=== PATIENT | female | born 1930 | race Caucasian/White ===

== ENCOUNTER 2017-07-28 21:57 | Inpatient (IN) | payer OTHER, BC ==
[~2017-07-28] VITALS: Ht 170.2 cm; Wt 96.9 kg
[~2017-07-28 21:57] MED LIST: AMCINONIDE TP; BACTRIM,SEPT1 TABLET PO; CALCIUM 600 +1 EA15 PO; CENTRUM SILVER1 EAC3 PO; COUMADIN2.5 MG PO; COUMADIN5 MG PO; HYDROCHLOROTHIA25 MG PO; LIDODERM 5% P1 PATCH TD; LIPITOR10 MG PO; LOPRESSOR50 MG PO; PERCOCET 5/31 TABLET PO; PREVACID30 MG PO; ZESTRIL10 MG PO
[2017-07-29 00:28] LABS: BASOPHIL (%) 0.1 % (0-1); EOSINOPHIL (%) 2.8 % (0-5); EOSINOPHIL COUNT 0.3 K/uL (0-0.3); HEMATOCRIT 38.9 % (36.0-46.0); HEMOGLOBIN 13.2 G/DL (11.9-15.5); IMMATURE GRANULOCYTE (%) 0.7 % (0.0-0.7); LYMPHOCYTE (%) 11.2 % (15-42); LYMPHOCYTE COUNT 1.2 K/uL (1.0-2.8); MCH 32.2 PG (29.0-34.0); MCHC 33.9 G/DL (30.0-36.0); MCV 94.9 FL (83-99); MONOCYTE COUNT 0.9 K/uL (0-0.8); NEUTROPHIL (%) 77.2 % (45-76); NEUTROPHIL COUNT 8.3 K/uL (1.8-6.4); NRBC (%) 0.2 /100 WBC (0-0); PLATELET COUNT 222 K/uL (156-360); RBC DIS.WIDTH-CV 13.9 % (11.8-14.6); RBC DIS.WIDTH-SD 48.2 % (39-53); WHITE BLOOD COUNT 10.8 K/uL (4.1-10.2)
[2017-07-29 00:36] LABS: PTT 38.5 SEC (25-37)
[2017-07-29 00:38] LABS: CHLORIDE 102 mEq/L (99-109); POTASSIUM 5.1 mEq/L (3.7-5.4); SODIUM 137 mEq/L (136-147)
[2017-07-29 00:40] LABS: GLUCOSE 104 mg/dL (70-99)
[2017-07-29 00:44] LABS: CREATININE 1.1 mg/dL (0.6-1.3); GFR ESTIMATE (CALCULATED) 50 mL/min/; UREA NITROGEN (BUN) 35 mg/dL (9-23)
[2017-07-29 00:47] LABS: INTER. NORMALIZED RATIO 5.2
[2017-07-29 00:49] LABS: TROP-I INTERPRETATION NEGATIVE; TROPONIN-I 0.05 ng/mL (0.0-0.30)
[2017-07-29 06:06] LABS: TROP-I INTERPRETATION NEGATIVE; TROPONIN-I 0.04 ng/mL (0.0-0.30)
[2017-07-29] MEDS ORDERED: CALCITONIN-SAL3.8 ML ALT NARES (11:39)
[2017-07-29 12:39] LABS: TROP-I INTERPRETATION NEGATIVE; TROPONIN-I 0.04 ng/mL (0.0-0.30)
[2017-07-29 16:48] VITALS: BP 109/80
[2017-07-29 19:01] VITALS: BP 114/73
[2017-07-29 22:54] VITALS: BP 118/75
[2017-07-30 03:26] VITALS: BP 158/74
[2017-07-30 06:23] LABS: BASOPHIL (%) 0.1 % (0-1); EOSINOPHIL (%) 0.3 % (0-5); HEMATOCRIT 40.4 % (36.0-46.0); HEMOGLOBIN 13.2 G/DL (11.9-15.5); IMMATURE GRANULOCYTE (%) 0.6 % (0.0-0.7); LYMPHOCYTE (%) 4.8 % (15-42); LYMPHOCYTE COUNT 0.8 K/uL (1.0-2.8); MCH 31.9 PG (29.0-34.0); MCHC 32.7 G/DL (30.0-36.0); MCV 97.6 FL (83-99); MONOCYTE (%) 6.2 % (3-12); NEUTROPHIL COUNT 13.8 K/uL (1.8-6.4); PLATELET COUNT 173 K/uL (156-360); RBC DIS.WIDTH-CV 14.4 % (11.8-14.6); RBC DIS.WIDTH-SD 51.2 % (39-53); RED BLOOD COUNT 4.14 M/uL (3.80-5.20); WHITE BLOOD COUNT 15.7 K/uL (4.1-10.2)
[2017-07-30 06:36] LABS: INTER. NORMALIZED RATIO 3.9
[2017-07-30 06:56] LABS: CHLORIDE 101 MEQ/L (99-109); CREATININE 1.2 MG/DL (0.6-1.3); GFR ESTIMATE (CALCULATED) 45 mL/min/; GLUCOSE 97 mg/dL (70-99); POTASSIUM 4.7 MEQ/L (3.7-5.4); SODIUM 140 MEQ/L (136-147); UREA NITROGEN (BUN) 31 mg/dL (9-23)
[2017-07-30 08:05] VITALS: BP 142/75
[2017-07-30 11:52] VITALS: BP 130/68
[2017-07-30 16:56] VITALS: BP 100/50
[2017-07-30 19:00] VITALS: BP 123/79
[2017-07-30 23:00] VITALS: BP 95/55
[2017-07-31 03:30] VITALS: BP 112/60
[2017-07-31 06:13] LABS: INTER. NORMALIZED RATIO 5.5
[2017-07-31 07:45] VITALS: BP 97/52
[2017-07-31 09:14] LABS: HEMOGLOBIN 12.9 G/DL (11.9-15.5); MCH 31.8 PG (29.0-34.0); MCHC 33.1 G/DL (30.0-36.0); MCV 96.1 FL (83-99); PLATELET COUNT 180 K/uL (156-360); RBC DIS.WIDTH-CV 14.3 % (11.8-14.6); RBC DIS.WIDTH-SD 50.3 % (39-53); RED BLOOD COUNT 4.06 M/uL (3.80-5.20); WHITE BLOOD COUNT 11.8 K/uL (4.1-10.2)
[2017-07-31 09:53] VITALS: BP 111/55
[2017-07-31 13:00] VITALS: BP 127/67
[2017-07-31 16:00] VITALS: BP 124/61
[2017-07-31 20:19] VITALS: BP 124/69
[2017-08-01 00:29] VITALS: BP 101/48
[2017-08-01 04:37] VITALS: BP 99/55
[2017-08-01 06:08] LABS: BASOPHIL (%) 0.4 % (0-1); EOSINOPHIL (%) 7.4 % (0-5); EOSINOPHIL COUNT 0.6 K/uL (0-0.3); HEMATOCRIT 36.6 % (36.0-46.0); HEMOGLOBIN 12.4 G/DL (11.9-15.5); IMMATURE GRANULOCYTE (%) 0.6 % (0.0-0.7); LYMPHOCYTE (%) 8.6 % (15-42); LYMPHOCYTE COUNT 0.7 K/uL (1.0-2.8); MCH 32.3 PG (29.0-34.0); MCHC 33.9 G/DL (30.0-36.0); MCV 95.3 FL (83-99); MONOCYTE (%) 8.1 % (3-12); MONOCYTE COUNT 0.7 K/uL (0-0.8); NEUTROPHIL (%) 74.9 % (45-76); NEUTROPHIL COUNT 6.3 K/uL (1.8-6.4); PLATELET COUNT 171 K/uL (156-360); RBC DIS.WIDTH-CV 14.7 % (11.8-14.6); RBC DIS.WIDTH-SD 51.2 % (39-53); RED BLOOD COUNT 3.84 M/uL (3.80-5.20); WHITE BLOOD COUNT 8.4 K/uL (4.1-10.2)
[2017-08-01 06:32] LABS: CHLORIDE 100 MEQ/L (99-109); CREATININE 1.3 MG/DL (0.6-1.3); GFR ESTIMATE (CALCULATED) 41 mL/min/; GLUCOSE 97 mg/dL (70-99); POTASSIUM 3.9 MEQ/L (3.7-5.4); SODIUM 136 MEQ/L (136-147); UREA NITROGEN (BUN) 39 mg/dL (9-23)
[2017-08-01 06:33] LABS: INTER. NORMALIZED RATIO 5.1
[2017-08-01 07:42] VITALS: BP 100/51
[2017-08-01 11:52] VITALS: BP 105/57
[2017-08-01 17:37] VITALS: BP 116/78
[2017-08-01 19:15] VITALS: BP 96/58
[2017-08-02 00:15] VITALS: BP 105/56
[2017-08-02 04:55] VITALS: BP 109/68
[2017-08-02 07:05] LABS: BASOPHIL (%) 0.3 % (0-1); EOSINOPHIL (%) 8.2 % (0-5); EOSINOPHIL COUNT 0.7 K/uL (0-0.3); HEMATOCRIT 37.5 % (36.0-46.0); HEMOGLOBIN 12.8 G/DL (11.9-15.5); IMMATURE GRANULOCYTE (%) 0.6 % (0.0-0.7); LYMPHOCYTE (%) 10.6 % (15-42); MCH 32.2 PG (29.0-34.0); MCHC 34.1 G/DL (30.0-36.0); MCV 94.2 FL (83-99); NEUTROPHIL (%) 69.3 % (45-76); NEUTROPHIL COUNT 6.2 K/uL (1.8-6.4); PLATELET COUNT 163 K/uL (156-360); RBC DIS.WIDTH-CV 14.6 % (11.8-14.6); RBC DIS.WIDTH-SD 50.5 % (39-53); RED BLOOD COUNT 3.98 M/uL (3.80-5.20)
[2017-08-02 07:35] LABS: INTER. NORMALIZED RATIO 5.1
[2017-08-02 08:00] VITALS: BP 134/81
[2017-08-02 08:02] LABS: CHLORIDE 98 MEQ/L (99-109); CREATININE 1.3 MG/DL (0.6-1.3); GFR ESTIMATE (CALCULATED) 41 mL/min/; GLUCOSE 100 mg/dL (70-99); POTASSIUM 4.6 MEQ/L (3.7-5.4); SODIUM 136 MEQ/L (136-147); UREA NITROGEN (BUN) 38 mg/dL (9-23)
[2017-08-02 12:00] VITALS: BP 124/90
[2017-08-02 16:34] VITALS: BP 108/62
[2017-08-02 20:15] VITALS: BP 104/60
[2017-08-03] VITALS (7 sets, daily range): BP systolic 94–139; BP diastolic 49–74
[2017-08-03 06:11] LABS: INTER. NORMALIZED RATIO 5.3
[2017-08-03 12:35] LABS: ALBUMIN 2.8 G/DL (3.2-4.8); ALKALINE PHOSPHATASE 256 IU/L (3-129); ALT (GPT) 106 IU/L (3-49); AST (GOT) 106 IU/L (2-34); DIRECT BILIRUBIN 4.1 mg/dL (0.0-0.3); TOTAL PROTEIN 5.3 G/DL (6.4-8.3)
[2017-08-04 03:23] VITALS: BP 132/59
[2017-08-04 06:46] LABS: INTER. NORMALIZED RATIO 3.8
[2017-08-04 07:55] VITALS: BP 130/81
[2017-08-04 08:18] LABS: HEMATOCRIT 36.4 % (36.0-46.0); HEMOGLOBIN 12.6 G/DL (11.9-15.5); MCH 32.1 PG (29.0-34.0); MCHC 34.6 G/DL (30.0-36.0); MCV 92.6 FL (83-99); PLATELET COUNT 171 K/uL (156-360); RBC DIS.WIDTH-CV 15.1 % (11.8-14.6); RBC DIS.WIDTH-SD 50.6 % (39-53); RED BLOOD COUNT 3.93 M/uL (3.80-5.20); WHITE BLOOD COUNT 10.4 K/uL (4.1-10.2)
[2017-08-04 08:38] LABS: CHLORIDE 97 MEQ/L (99-109); CREATININE 1.3 MG/DL (0.6-1.3); GFR ESTIMATE (CALCULATED) 41 mL/min/; GLUCOSE 97 mg/dL (70-99); POTASSIUM 4.3 MEQ/L (3.7-5.4); SODIUM 133 MEQ/L (136-147); UREA NITROGEN (BUN) 39 mg/dL (9-23)
[2017-08-04 09:21] LABS: ALBUMIN 2.6 G/DL (3.2-4.8); ALKALINE PHOSPHATASE 271 IU/L (3-129); ALT (GPT) 105 IU/L (3-49); AST (GOT) 112 IU/L (2-34); DIRECT BILIRUBIN 5.4 mg/dL (0.0-0.3); TOTAL PROTEIN 4.7 G/DL (6.4-8.3)
[2017-08-04 09:33] LABS: TOTAL BILIRUBIN 7.3 MG/DL (0.0-1.0)
[2017-08-04 11:31] LABS: HEPATITIS B SURFACE ANTIGEN Nonreactive
[2017-08-04 11:32] LABS: ANTI-HEPATITIS A VIRUS (IGM) Nonreactive; HEPATITIS C ANTIBODY Nonreactive
[2017-08-04 11:33] LABS: ANTI-HEPATITIS B CORE (IGM) Nonreactive
[2017-08-04 11:47] VITALS: BP 134/88
[2017-08-04 16:45] VITALS: BP 129/68
[2017-08-04 19:30] VITALS: BP 126/59
[2017-08-05 00:18] VITALS: BP 131/96
[2017-08-05 04:30] VITALS: BP 122/88
[2017-08-05 05:29] LABS: INTER. NORMALIZED RATIO 2.9
[2017-08-05 05:39] LABS: BASOPHIL (%) 0.4 % (0-1); EOSINOPHIL (%) 4.3 % (0-5); EOSINOPHIL COUNT 0.5 K/uL (0-0.3); HEMATOCRIT 34.8 % (36.0-46.0); HEMOGLOBIN 12.3 G/DL (11.9-15.5); IMMATURE GRANULOCYTE (%) 1.1 % (0.0-0.7); LYMPHOCYTE (%) 10.2 % (15-42); LYMPHOCYTE COUNT 1.1 K/uL (1.0-2.8); MCH 32.1 PG (29.0-34.0); MCHC 35.3 G/DL (30.0-36.0); MCV 90.9 FL (83-99); NEUTROPHIL COUNT 8.4 K/uL (1.8-6.4); PLATELET COUNT 164 K/uL (156-360); RBC DIS.WIDTH-CV 15.3 % (11.8-14.6); RBC DIS.WIDTH-SD 49.8 % (39-53); RED BLOOD COUNT 3.83 M/uL (3.80-5.20); WHITE BLOOD COUNT 11.1 K/uL (4.1-10.2)
[2017-08-05 06:34] LABS: ALBUMIN 2.6 G/DL (3.2-4.8); ALKALINE PHOSPHATASE 276 IU/L (3-129); ALT (GPT) 101 IU/L (3-49); AST (GOT) 92 IU/L (2-34); CHLORIDE 97 MEQ/L (99-109); CREATININE 1.1 MG/DL (0.6-1.3); DIRECT BILIRUBIN 2.9 mg/dL (0.0-0.3); GFR ESTIMATE (CALCULATED) 50 mL/min/; GLUCOSE 109 mg/dL (70-99); POTASSIUM 4.2 MEQ/L (3.7-5.4); SODIUM 135 MEQ/L (136-147); TOTAL BILIRUBIN 4.7 MG/DL (0.0-1.0); TOTAL PROTEIN 4.8 G/DL (6.4-8.3); UREA NITROGEN (BUN) 37 mg/dL (9-23)
[2017-08-05 07:15] VITALS: BP 110/72
[2017-08-05 11:24] VITALS: BP 123/70
[2017-08-05 16:20] VITALS: BP 121/80
[2017-08-05 19:05] VITALS: BP 118/65
[2017-08-06 00:20] VITALS: BP 103/60
[2017-08-06 04:00] VITALS: BP 100/67
[2017-08-06 05:42] LABS: HEMATOCRIT 33.7 % (36.0-46.0); HEMOGLOBIN 11.7 G/DL (11.9-15.5); INTER. NORMALIZED RATIO 2.7; MCH 31.9 PG (29.0-34.0); MCHC 34.7 G/DL (30.0-36.0); MCV 91.8 FL (83-99); PLATELET COUNT 170 K/uL (156-360); RBC DIS.WIDTH-CV 15.1 % (11.8-14.6); RED BLOOD COUNT 3.67 M/uL (3.80-5.20); WHITE BLOOD COUNT 12.3 K/uL (4.1-10.2)
[2017-08-06 06:30] LABS: ALBUMIN 2.6 G/DL (3.2-4.8); ALKALINE PHOSPHATASE 268 IU/L (3-129); ALT (GPT) 88 IU/L (3-49); AST (GOT) 81 IU/L (2-34); CHLORIDE 95 MEQ/L (99-109); CREATININE 1.1 MG/DL (0.6-1.3); GFR ESTIMATE (CALCULATED) 50 mL/min/; GLUCOSE 109 mg/dL (70-99); POTASSIUM 4.2 MEQ/L (3.7-5.4); SODIUM 133 MEQ/L (136-147); TOTAL BILIRUBIN 4.6 MG/DL (0.0-1.0); TOTAL PROTEIN 5.2 G/DL (6.4-8.3); UREA NITROGEN (BUN) 33 mg/dL (9-23)
[2017-08-06 07:44] VITALS: BP 121/77
[2017-08-06 12:42] VITALS: BP 126/84
[2017-08-06 19:05] LABS: APPEARANCE CLOUDY ((CLEAR)); BILIRUBIN SMALL; BLOOD LARGE; COLOR AMBER ((YELLOW)); GLUCOSE (STRIP) NEGATIVE; KETONES NEGATIVE; LEUKOCYTES LARGE; NITRITE POSITIVE; PROTEIN (STRIP) 30; SPECIFIC GRAVITY 1.023 (1.000-1.030)
[2017-08-06 19:48] LABS: BACTERIA 3+ /HPF; EPITHELIAL CELLS 1+ /HPF; MUCUS RARE /LPF; RED BLOOD CELLS 40-50 /HPF (0-5); WHITE BLOOD CELLS TNTC /HPF (0-5)
[2017-08-06 20:20] VITALS: BP 103/61
[2017-08-06 22:01] VITALS: BP 114/62
[2017-08-07 03:50] VITALS: BP 121/65
[2017-08-07 05:10] LABS: HEMATOCRIT 33.1 % (36.0-46.0); HEMOGLOBIN 11.4 G/DL (11.9-15.5); MCH 31.6 PG (29.0-34.0); MCHC 34.4 G/DL (30.0-36.0); MCV 91.7 FL (83-99); PLATELET COUNT 158 K/uL (156-360); RBC DIS.WIDTH-CV 15.1 % (11.8-14.6); RBC DIS.WIDTH-SD 50.4 % (39-53); RED BLOOD COUNT 3.61 M/uL (3.80-5.20)
[2017-08-07 05:38] LABS: INTER. NORMALIZED RATIO 3.1
[2017-08-07 06:05] LABS: CHLORIDE 94 MEQ/L (99-109); GFR ESTIMATE (CALCULATED) 56 mL/min/; GLUCOSE 110 mg/dL (70-99); MAGNESIUM 1.8 mg/dl (1.3-2.7); POTASSIUM 3.9 MEQ/L (3.7-5.4); SODIUM 132 MEQ/L (136-147); UREA NITROGEN (BUN) 31 mg/dL (9-23)
[2017-08-07 07:52] VITALS: BP 119/55
[2017-08-07 11:02] VITALS: BP 115/72
[2017-08-07 15:24] VITALS: BP 117/72
[2017-08-07 20:16] VITALS: BP 112/74
[2017-08-07 23:55] VITALS: BP 112/73
[2017-08-08 04:13] VITALS: BP 168/70
[2017-08-08 07:43] VITALS: BP 117/56
[2017-08-08 10:31] LABS: INTER. NORMALIZED RATIO 3.3
[2017-08-08 11:00] LABS: ALBUMIN 2.6 G/DL (3.2-4.8); CHLORIDE 93 MEQ/L (99-109); POTASSIUM 3.8 MEQ/L (3.7-5.4); SODIUM 131 MEQ/L (136-147); TOTAL BILIRUBIN 4.4 MG/DL (0.0-1.0)
[2017-08-08 11:06] LABS: ALKALINE PHOSPHATASE 276 IU/L (3-129); ALT (GPT) 72 IU/L (3-49); AST (GOT) 62 IU/L (2-34); GFR ESTIMATE (CALCULATED) 56 mL/min/; GLUCOSE 144 mg/dL (70-99); TOTAL PROTEIN 5.6 G/DL (6.4-8.3); UREA NITROGEN (BUN) 29 mg/dL (9-23)
[2017-08-08 11:34] LABS: BASE EXCESS 7.8 mEq/L (-3 to +3); BICARBONATE 32.7 mEq/L (22-26); CARBOXY HGB 1.9 % (0-5); COMMENTS - BLOOD GASES A+C+; METHEMOGLOBIN 1.5 % (0-1.5); PCO2 46 mm Hg (35-45); PO2 103 mm Hg (80-100); SITE RR; pH 7.46 (7.35-7.45)
[2017-08-08 11:35] LABS: DEVICE NC; O2 FLOW 2 L/MIN; TOTAL RESP RATE 12 resp/min
[2017-08-08 12:37] LABS: HEMATOCRIT 34.4 % (36.0-46.0); HEMOGLOBIN 12.1 G/DL (11.9-15.5); MCH 32.8 PG (29.0-34.0); MCHC 35.2 G/DL (30.0-36.0); MCV 93.2 FL (83-99); PLATELET COUNT 173 K/uL (156-360); RBC DIS.WIDTH-CV 15.4 % (11.8-14.6); RBC DIS.WIDTH-SD 51.6 % (39-53); RED BLOOD COUNT 3.69 M/uL (3.80-5.20); WHITE BLOOD COUNT 12.9 K/uL (4.1-10.2)
[2017-08-08 15:23] VITALS: BP 95/54
[2017-08-08 20:08] VITALS: BP 101/58
[2017-08-08 23:40] VITALS: BP 103/64
[2017-08-09 04:00] VITALS: BP 100/60
[2017-08-09 06:06] LABS: INTER. NORMALIZED RATIO 2.8
[2017-08-09 06:19] LABS: HEMATOCRIT 32.4 % (36.0-46.0); MCH 31.7 PG (29.0-34.0); MCV 93.4 FL (83-99); PLATELET COUNT 164 K/uL (156-360); RBC DIS.WIDTH-CV 15.3 % (11.8-14.6); RBC DIS.WIDTH-SD 51.5 % (39-53); RED BLOOD COUNT 3.47 M/uL (3.80-5.20); WHITE BLOOD COUNT 11.6 K/uL (4.1-10.2)
[2017-08-09 06:26] LABS: CHLORIDE 92 MEQ/L (99-109); GFR ESTIMATE (CALCULATED) 56 mL/min/; SODIUM 131 MEQ/L (136-147); UREA NITROGEN (BUN) 30 mg/dL (9-23)
[2017-08-09 06:28] LABS: GLUCOSE 95 mg/dL (70-99)
[2017-08-09 08:23] VITALS: BP 108/56
[2017-08-09 08:43] LABS: ALBUMIN 2.5 G/DL (3.2-4.8); ALKALINE PHOSPHATASE 262 IU/L (3-129); ALT (GPT) 62 IU/L (3-49); AST (GOT) 56 IU/L (2-34); DIRECT BILIRUBIN 3.1 mg/dL (0.0-0.3); TOTAL BILIRUBIN 4.6 MG/DL (0.0-1.0); TOTAL PROTEIN 5.4 G/DL (6.4-8.3)
[2017-08-09] MEDS ORDERED: CYCLOBENZAPRINE5 MG PO (15:04)
[2017-08-09] MEDS ORDERED: CARDIZEM CD,CA240 MG PO (15:05)
[2017-08-09] MEDS ORDERED: SENNA PLUS TAB1 EACH PO (15:06)
[2017-08-09] MEDS ORDERED: POLYETHYLENE GL17 GM PO (15:07)
[2017-08-09] MEDS ORDERED: LIDOCAINE700 MG TP (15:08)
[2017-08-09] MEDS ORDERED: HYDROMORPHONE HC2 MG PO (15:10)
[2017-08-09] MEDS ORDERED: OXYCONTIN10 MG PO (15:10)
[2017-08-09 16:02] VITALS: BP 116/60
[2017-08-09 19:55] VITALS: BP 117/56
[2017-08-09 23:17] VITALS: BP 101/61
[2017-08-10 04:14] VITALS: BP 108/54
[2017-08-10 05:33] LABS: INTER. NORMALIZED RATIO 1.9
[2017-08-10 05:36] LABS: HEMATOCRIT 30.2 % (36.0-46.0); HEMOGLOBIN 10.3 G/DL (11.9-15.5); MCH 31.7 PG (29.0-34.0); MCHC 34.1 G/DL (30.0-36.0); MCV 92.9 FL (83-99); PLATELET COUNT 189 K/uL (156-360); RBC DIS.WIDTH-SD 50.5 % (39-53); RED BLOOD COUNT 3.25 M/uL (3.80-5.20); WHITE BLOOD COUNT 10.6 K/uL (4.1-10.2)
[2017-08-10 05:59] LABS: CHLORIDE 94 MEQ/L (99-109); CREATININE 0.8 MG/DL (0.6-1.3); GFR ESTIMATE (CALCULATED) > 59 mL/min/; GLUCOSE 115 mg/dL (70-99); POTASSIUM 3.8 MEQ/L (3.7-5.4); SODIUM 132 MEQ/L (136-147); UREA NITROGEN (BUN) 30 mg/dL (9-23)
[2017-08-10 07:57] VITALS: BP 110/63
[2017-08-10] MEDS ORDERED: LOPRESSOR50 MG PO (11:17)
[2017-08-10] MEDS ORDERED: CIPRO500 MG PO (11:17)
[2017-08-10] MEDS ORDERED: LASIX20 MG PO (11:19)
[2017-08-10 12:28] VITALS: BP 108/67
== END 2017-08-10 13:55 | DRG 552 ==
LOC: EME 21:57 → EDOF 07-29 03:51 → 3EAST 07-29 03:51 → 4EAST 07-29 03:51 → ENRESERV 07-29 03:52 → 4EAST 07-29 16:16 → ENRESERV 08-06 19:50 → 3EAST 08-06 21:08
PROVIDERS: Emergency Medicine; Hospitalist; Internal Medicine; Student in an Organized Health Care Education/Training Program
DX: S22.088A Other fracture of T11-T12 vertebra, initial encounter for closed fracture (principal); W01.0XXA Fall on same level from slipping, tripping and stumbling without subsequent striking against object, initial encounter; I48.0 Paroxysmal atrial fibrillation; J81.1 Chronic pulmonary edema; R17 Unspecified jaundice; E87.1 Hypo-osmolality and hyponatremia; L22 Diaper dermatitis; I10 Essential (primary) hypertension; R79.1 Abnormal coagulation profile; D72.829 Elevated white blood cell count, unspecified; R79.89 Other specified abnormal findings of blood chemistry; R74.0 Nonspecific elevation of levels of transaminase and lactic acid dehydrogenase [LDH]; R33.9 Retention of urine, unspecified; S51.801A Unspecified open wound of right forearm, initial encounter; S80.921A Unspecified superficial injury of right lower leg, initial encounter; E78.5 Hyperlipidemia, unspecified; I87.2 Venous insufficiency (chronic) (peripheral); J45.909 Unspecified asthma, uncomplicated; K44.9 Diaphragmatic hernia without obstruction or gangrene; K59.00 Constipation, unspecified; M19.90 Unspecified osteoarthritis, unspecified site; E66.01 Morbid (severe) obesity due to excess calories; Z68.33 Body mass index [BMI] 33.0-33.9, adult; Z79.01 Long term (current) use of anticoagulants; Z86.718 Personal history of other venous thrombosis and embolism; Z86.73 Personal history of transient ischemic attack (TIA), and cerebral infarction without residual deficits
CPT/HCPCS: 36600; 70450; 71045; 71275; 72128; 72131; 74183; 76705; 80048; 80053; 80074; 80076; 81003; 82140; 82248; 82803; 83605; 83735; 84484; 85025; 85027; 85610; 85730; 87086; 93005; 94799; 97530 GP; 99281; 99285; J0696; J1160; J1170; J1940; J2270; J2310; J3010; J7050

== ENCOUNTER 2017-09-11 19:28 | Inpatient (IN) | payer OTHER, BC ==
[~2017-09-11] VITALS: Ht 170.2 cm; Wt 108.5 kg
[~2017-09-11 19:28] MED LIST changes: +CALCITONIN-SAL3.8 ML ALT NARES; -CALCIUM 600 +1 EA15 PO; +CALCIUM 600 +1 EA16 PO; +CARDIZEM CD,CA240 MG PO; +CIPRO500 MG PO; +CYCLOBENZAPRINE5 MG PO; +HYDROMORPHONE HC2 MG PO; +LASIX20 MG PO; +LIDOCAINE700 MG TP; +OXYCONTIN10 MG PO; +POLYETHYLENE GL17 GM PO; +SENNA PLUS TAB1 EACH PO
[2017-09-11 22:34] LABS: HEMOGLOBIN 11.6 G/DL (11.9-15.5); MCH 31.2 PG (29.0-34.0); MCHC 34.1 G/DL (30.0-36.0); PLATELET COUNT 320 K/uL (156-360); RBC DIS.WIDTH-CV 13.7 % (11.8-14.6); RBC DIS.WIDTH-SD 46.3 % (39-53); RED BLOOD COUNT 3.72 M/uL (3.80-5.20); WHITE BLOOD COUNT 23.8 K/uL (4.1-10.2)
[2017-09-11 22:36] LABS: MCV 91.4 FL (83-99)
[2017-09-11 22:44] LABS: INTER. NORMALIZED RATIO 2.4
[2017-09-11 22:47] LABS: PTT 29.5 SEC (25-37)
[2017-09-11 22:49] LABS: ALBUMIN 2.6 g/dL (3.2-4.8); CHLORIDE 94 mEq/L (99-109); POTASSIUM 4.2 mEq/L (3.7-5.4); SODIUM 129 mEq/L (136-147)
[2017-09-11 22:51] LABS: GLUCOSE 123 mg/dL (70-99); TOTAL PROTEIN 5.8 g/dL (6.4-8.3)
[2017-09-11 22:53] LABS: TOTAL BILIRUBIN 1.6 mg/dL (0.0-1.0)
[2017-09-11 22:55] LABS: ALKALINE PHOSPHATASE 191 IU/L (3-129); CREATININE 0.9 mg/dL (0.6-1.3); GFR ESTIMATE (CALCULATED) > 59 mL/min/
[2017-09-11 22:56] LABS: UREA NITROGEN (BUN) 22 mg/dL (9-23)
[2017-09-11 22:57] LABS: AST (GOT) 35 IU/L (2-34)
[2017-09-11 22:58] LABS: ALT (GPT) 36 IU/L (3-49)
[2017-09-11 23:00] LABS: TROP-I INTERPRETATION NEGATIVE; TROPONIN-I 0.02 ng/mL (0.0-0.30)
[2017-09-12] VITALS (20 sets, daily range): BP systolic 75–149; BP diastolic 50–117
[2017-09-12] MEDS ORDERED: MILK OF MAGN PO (00:33)
[2017-09-12] MEDS ORDERED: TYLENOL REGULA325 MG PO (00:34)
[2017-09-12] MEDS ORDERED: OXYCONTIN20 MG PO (00:37)
[2017-09-12] MEDS ORDERED: XARELTO15 MG PO (00:41)
[2017-09-12] MEDS ORDERED: SALONPAS PATCH1 EAC1 TD (00:47)
[2017-09-12] MEDS ORDERED: MIRALAX17 GM PO (00:52)
[2017-09-12] MEDS ORDERED: METOPROLOL TART75 MG PO (00:58)
[2017-09-12] MEDS ORDERED: HYDROCHLOROTHIA25 MG PO (01:05)
[2017-09-12] MEDS ORDERED: FERRETTS325 MG PO (01:07)
[2017-09-12] MEDS ORDERED: CARDIZEM CD120 MG PO (01:11)
[2017-09-12] MEDS ORDERED: FLEXERIL5 MG PO (01:13)
[2017-09-12 01:32] LABS: INTER. NORMALIZED RATIO 2.4
[2017-09-12 04:30] LABS: APPEARANCE TURBID ((CLEAR)); BILIRUBIN NEGATIVE; BLOOD MODERATE; COLOR YELLOW ((YELLOW)); GLUCOSE (STRIP) NEGATIVE; KETONES NEGATIVE; LEUKOCYTES LARGE; NITRITE NEGATIVE; PROTEIN (STRIP) 100; SPECIFIC GRAVITY 1.036 (1.000-1.030)
[2017-09-12 04:53] LABS: RED BLOOD CELLS 20-30 /HPF (0-5); WHITE BLOOD CELLS TNTC /HPF (0-5)
[2017-09-12 04:54] LABS: BACTERIA 1+ /HPF; EPITHELIAL CELLS RARE /HPF; MUCUS NONE SEEN /LPF
[2017-09-12 07:59] LABS: LIPASE < 3.0 U/L (1.0-51.0)
[2017-09-12 08:59] LABS: BASOPHIL (%) 0.2 % (0-1); BASOPHIL COUNT 0.1 K/uL (0-0.1); EOSINOPHIL (%) 0 % (0-5); HEMATOCRIT 30.6 % (36.0-46.0); HEMOGLOBIN 10.4 G/DL (11.9-15.5); IMMATURE GRANULOCYTE (%) 0.8 % (0.0-0.7); LYMPHOCYTE (%) 7.4 % (15-42); LYMPHOCYTE COUNT 1.6 K/uL (1.0-2.8); MCH 31.3 PG (29.0-34.0); MCV 92.2 FL (83-99); MONOCYTE COUNT 1.7 K/uL (0-0.8); NEUTROPHIL (%) 83.6 % (45-76); PLATELET COUNT 293 K/uL (156-360); RBC DIS.WIDTH-CV 14.1 % (11.8-14.6); RBC DIS.WIDTH-SD 47.1 % (39-53); RED BLOOD COUNT 3.32 M/uL (3.80-5.20); WHITE BLOOD COUNT 21.6 K/uL (4.1-10.2)
[2017-09-12 09:33] LABS: CHLORIDE 96 MEQ/L (99-109); CREATININE 0.9 MG/DL (0.6-1.3); GFR ESTIMATE (CALCULATED) > 59 mL/min/; GLUCOSE 121 mg/dL (70-99); POTASSIUM 3.9 MEQ/L (3.7-5.4); SODIUM 132 MEQ/L (136-147); UREA NITROGEN (BUN) 24 mg/dL (9-23)
[2017-09-12 10:04] LABS: THYROTROPIN (TSH) 1.9 MIU/L (0.4-5.5)
[2017-09-13] VITALS (19 sets, daily range): BP systolic 76–116; BP diastolic 45–87
[2017-09-13 05:40] LABS: HEMATOCRIT 29.9 % (36.0-46.0); HEMOGLOBIN 10.3 G/DL (11.9-15.5); MCH 31.7 PG (29.0-34.0); MCHC 34.4 G/DL (30.0-36.0); PLATELET COUNT 260 K/uL (156-360); RBC DIS.WIDTH-SD 47.8 % (39-53); RED BLOOD COUNT 3.25 M/uL (3.80-5.20); WHITE BLOOD COUNT 12.4 K/uL (4.1-10.2)
[2017-09-13 05:49] LABS: PTT 32.4 SEC (25-37)
[2017-09-13 06:07] LABS: CHLORIDE 97 MEQ/L (99-109); CREATININE 0.9 MG/DL (0.6-1.3); GFR ESTIMATE (CALCULATED) > 59 mL/min/; GLUCOSE 105 mg/dL (70-99); POTASSIUM 3.8 MEQ/L (3.7-5.4); SODIUM 131 MEQ/L (136-147); UREA NITROGEN (BUN) 23 mg/dL (9-23)
[2017-09-14] VITALS (10 sets, daily range): BP systolic 85–125; BP diastolic 55–94
[2017-09-14 08:08] LABS: CHLORIDE 99 MEQ/L (99-109); CREATININE 0.9 MG/DL (0.6-1.3); GFR ESTIMATE (CALCULATED) > 59 mL/min/; GLUCOSE 97 mg/dL (70-99); POTASSIUM 4.4 MEQ/L (3.7-5.4); SODIUM 131 MEQ/L (136-147); UREA NITROGEN (BUN) 23 mg/dL (9-23)
[2017-09-14 08:24] LABS: BASOPHIL (%) 0.3 % (0-1); EOSINOPHIL (%) 2.9 % (0-5); EOSINOPHIL COUNT 0.3 K/uL (0-0.3); HEMATOCRIT 31.3 % (36.0-46.0); HEMOGLOBIN 10.9 G/DL (11.9-15.5); LYMPHOCYTE (%) 9.9 % (15-42); MCH 31.8 PG (29.0-34.0); MCHC 34.8 G/DL (30.0-36.0); MCV 91.3 FL (83-99); MONOCYTE (%) 7.6 % (3-12); MONOCYTE COUNT 0.8 K/uL (0-0.8); NEUTROPHIL (%) 78.3 % (45-76); NEUTROPHIL COUNT 7.9 K/uL (1.8-6.4); NRBC (%) 0.4 /100 WBC (0-0); RBC DIS.WIDTH-CV 14.3 % (11.8-14.6); RBC DIS.WIDTH-SD 47.5 % (39-53); RED BLOOD COUNT 3.43 M/uL (3.80-5.20); WHITE BLOOD COUNT 10.1 K/uL (4.1-10.2)
[2017-09-14 08:55] LABS: PLAT.SUFFICIENCY ADEQUATE; PLATELET COUNT 286 K/uL (156-360)
[2017-09-14 12:48] LABS: INTER. NORMALIZED RATIO 1.7
[2017-09-15 02:50] VITALS: BP 109/70
[2017-09-15 05:59] LABS: INTER. NORMALIZED RATIO 1.6
[2017-09-15 07:15] VITALS: BP 122/73
[2017-09-15 12:00] VITALS: BP 125/70
[2017-09-15 15:00] VITALS: BP 125/72
[2017-09-15 19:57] VITALS: BP 112/81
[2017-09-15 23:16] VITALS: BP 101/64
[2017-09-16 04:32] VITALS: BP 125/63
[2017-09-16 05:14] LABS: HEMATOCRIT 28.7 % (36.0-46.0); HEMOGLOBIN 9.5 G/DL (11.9-15.5); MCH 30.6 PG (29.0-34.0); MCHC 33.1 G/DL (30.0-36.0); MCV 92.6 FL (83-99); PLATELET COUNT 292 K/uL (156-360); RBC DIS.WIDTH-CV 14.2 % (11.8-14.6); RBC DIS.WIDTH-SD 47.8 % (39-53); WHITE BLOOD COUNT 7.5 K/uL (4.1-10.2)
[2017-09-16 05:29] LABS: INTER. NORMALIZED RATIO 3.6
[2017-09-16 06:01] LABS: CHLORIDE 102 MEQ/L (99-109); CREATININE 0.8 MG/DL (0.6-1.3); GFR ESTIMATE (CALCULATED) > 59 mL/min/; GLUCOSE 85 mg/dL (70-99); POTASSIUM 3.7 MEQ/L (3.7-5.4); SODIUM 137 MEQ/L (136-147); UREA NITROGEN (BUN) 14 mg/dL (9-23)
[2017-09-16 07:00] VITALS: BP 94/73
[2017-09-16] MEDS ORDERED: LASIX20 MG PO (11:17)
[2017-09-16] MEDS ORDERED: LIDOCARE1 EACH TP (11:22)
[2017-09-16] MEDS ORDERED: SENNA PLUS TAB1 EACH PO (11:23)
[2017-09-16] MEDS ORDERED: XARELTO15 MG PO (11:24)
[2017-09-16] MEDS ORDERED: OXYCONTIN10 MG PO (11:30)
[2017-09-16] MEDS ORDERED: DULCOLAX5 MG PO (11:32)
[2017-09-16] MEDS ORDERED: MILK OF MAGN PO (11:34)
[2017-09-16] MEDS ORDERED: SSD25GM TP (11:37)
[2017-09-16] MEDS ORDERED: FEOSOL325 MG PO (11:46)
[2017-09-16 11:47] VITALS: BP 95/63
[2017-09-16 15:00] VITALS: BP 102/68
[2017-09-16 20:10] VITALS: BP 101/42
[2017-09-16 23:45] VITALS: BP 102/73
[2017-09-17 04:41] VITALS: BP 112/72
[2017-09-17 05:17] LABS: HEMATOCRIT 30.2 % (36.0-46.0); HEMOGLOBIN 9.8 G/DL (11.9-15.5); MCH 30.4 PG (29.0-34.0); MCHC 32.5 G/DL (30.0-36.0); MCV 93.8 FL (83-99); PLATELET COUNT 283 K/uL (156-360); RBC DIS.WIDTH-CV 14.2 % (11.8-14.6); RBC DIS.WIDTH-SD 48.6 % (39-53); RED BLOOD COUNT 3.22 M/uL (3.80-5.20); WHITE BLOOD COUNT 8.7 K/uL (4.1-10.2)
[2017-09-17 05:41] LABS: CHLORIDE 101 MEQ/L (99-109); CREATININE 0.8 MG/DL (0.6-1.3); GFR ESTIMATE (CALCULATED) > 59 mL/min/; GLUCOSE 100 mg/dL (70-99); POTASSIUM 3.7 MEQ/L (3.7-5.4); SODIUM 135 MEQ/L (136-147); UREA NITROGEN (BUN) 13 mg/dL (9-23)
[2017-09-17 05:43] LABS: INTER. NORMALIZED RATIO 2.4
[2017-09-17 08:26] VITALS: BP 141/74
[2017-09-17 11:26] VITALS: BP 133/70
[2017-09-17] MEDS ORDERED: SPIRONOLACTONE50 MG PO (14:18)
[2017-09-17] MEDS ORDERED: DOXYCYCLINE HY100 MG PO (14:22)
== END 2017-09-17 16:45 | DRG 871 ==
LOC: EME → EDBD 19:28 → EME 19:28 → ENRESERV 09-12 02:36 → 4WEST 09-12 03:50 → EDOF 09-12 03:50 → ENRESERV 09-12 03:53 → 4WEST 09-12 04:57 → ENRESERV 09-14 12:03 → 4EAST 09-14 14:45 → ENPENDDIS 09-17 → 4EAST 09-17 16:45
PROVIDERS: Emergency Medicine; Family Medicine; Internal Medicine Critical Care Medicine; Surgery
DX: A41.9 Sepsis, unspecified organism (principal); N39.0 Urinary tract infection, site not specified; I48.2 Chronic atrial fibrillation; R17 Unspecified jaundice; I11.0 Hypertensive heart disease with heart failure; D68.9 Coagulation defect, unspecified; R65.21 Severe sepsis with septic shock; E03.9 Hypothyroidism, unspecified; E78.5 Hyperlipidemia, unspecified; F03.90 Unspecified dementia, unspecified severity, without behavioral disturbance, psychotic disturbance, mood disturbance, and anxiety; Z66 Do not resuscitate; E66.01 Morbid (severe) obesity due to excess calories; E87.1 Hypo-osmolality and hyponatremia; K21.9 Gastro-esophageal reflux disease without esophagitis; K44.9 Diaphragmatic hernia without obstruction or gangrene; D63.8 Anemia in other chronic diseases classified elsewhere; E86.1 Hypovolemia; Z90.49 Acquired absence of other specified parts of digestive tract; Z86.14 Personal history of Methicillin resistant Staphylococcus aureus infection; Z86.73 Personal history of transient ischemic attack (TIA), and cerebral infarction without residual deficits; Z79.01 Long term (current) use of anticoagulants; Z88.0 Allergy status to penicillin; B95.62 Methicillin resistant Staphylococcus aureus infection as the cause of diseases classified elsewhere; K59.09 Other constipation; G89.29 Other chronic pain; J45.909 Unspecified asthma, uncomplicated
CPT/HCPCS: 71045; 71046; 71260; 74177; 74178; 80048; 80053; 80202; 81003; 82533 91; 83605; 83690; 83880; 84443; 84484; 85025; 85027; 85610; 85730; 87040; 87077; 87086; 87147; 87186; 87641; 93005; 93306; 93971; 94799; 99281; 99285; C1751; J0610; J1650; J1940; J1956; J2405; J2997; J3370; J7030; J7040; J7050; S0030